=== PATIENT | female | born 1955 | race African-American/Black ===

== ENCOUNTER → 2016-10-17 | Day surgery (SDC) | payer BC, OTHER ==
[~2016-10-17] MED LIST: AMLODIPINE BESY10 MG PO; ASPIRIN EC81 M1 PO; CHLORTHALIDONE25 M1 PO; JANUMET PO; PRINIVIL40 MG PO; SIMVASTATIN10 MG PO; VITAMIN B122500 MCG PO; VITAMIN D3 PO
--- NOTE | ~2016-10-17 | OR ---
Unit #: [id number] #: [id number] Patient: MEDARDO ZHANG [id number] [address] [place], [place] [address] [id number] MR#: [id number] NAME: MEDARDO ZHANG ROOM: Date of Procedure: 10/17/2016 Admission Date: 10/17/2016 Surgeon: Kraig Vargas M.D. : 1955 Attending Physician: Kraig Vargas M.D. Primary Care Physician: Hillary Reid A.P.R.N. OPERATIVE REPORT PROCEDURE PERFORMED Colonoscopy with snare polypectomy. INDICATIONS FOR PROCEDURE Average risk for colorectal cancer. MEDICATIONS Monitored anesthesia. POSTOPERATIVE FINDINGS 1. Two polyps, 5 mm each in descending colon, snared and sent for pathology. 2. Rest of the colon to cecum was normal. 3. Good prep. 4. Internal hemorrhoids. PLAN Follow up on the pathology report. If adenomatous, repeat colonoscopy in 5 years. DESCRIPTION OF PROCEDURE The patient was explained of the procedure, risks, and benefits along with risks and benefits of anesthesia. She was brought to the endoscopy room. Propofol anesthesia was given. Rectal exam was done, which was normal. Colonoscope was lubricated, passed up the rectum, advanced under direct vision all the way to the cecum. Cecum was identified by ileocecal valve and appendiceal orifice. I then started to pull the scope out carefully looking. Two polyps were seen in transverse colon and descending colon as described. They were snared and sent for histopathology. I retroflexed in the rectum, small hemorrhoids seen. The scope was gently pulled out. She tolerated it well. No major complications were seen. Dictated by... Johanna Comer/magi TD: 10/17/2016 23:39 JOB #: [id number] Unit #: [id number] #: [id number] Patient: MEDARDO ZHANG OPERATIVE REPORT Page 1 of 1 X Kraig Vargas MD X PROCEDURE OPERATIVE NOTE
== END | disposition home or self-care (01) ==
LOC: COPS 07:08
DX: Z12.11 Encounter for screening for malignant neoplasm of colon (principal); D12.4 Benign neoplasm of descending colon; K64.8 Other hemorrhoids; F17.210 Nicotine dependence, cigarettes, uncomplicated; Z90.11 Acquired absence of right breast and nipple
CPT/HCPCS: 82947; 88305